=== PATIENT | male | born 1945 | race Caucasian/White ===

== ENCOUNTER 2022-01-28 10:47 | Outpatient (REF) | payer MEDICARE, SELFPAY ==
[2022-01-28 11:48] LABS: Estimated Glomerular Filt Rate 29; Uric Acid 5.3 mg/dL (3.4-7.0)
== END 2022-01-28 10:48 | disposition home or self-care (01) ==
LOC: HO.LAB 10:47
PROVIDERS: PCP Internal Medicine; Visit Provider Internal Medicine Rheumatology
DX: M17.0 Bilateral primary osteoarthritis of knee (principal); M10.30 Gout due to renal impairment, unspecified site; N18.30 Chronic kidney disease, stage 3 unspecified
CPT/HCPCS: 36415; 82565; 84550